=== PATIENT | female | born 1995 | race Caucasian/White ===

== ENCOUNTER → 2019-03-22 03:23 | Observation (INO) ==
[2019-03-22 01:35] LABS: Bilirubin,Urine Negative (Negative); Blood,Urine Negative (Negative); Clarity,Urine Cloudy (Clear); Color,Urine Yellow (Yellow); Glucose,Urine (UA) Normal (Normal); Ketones,Urine Negative (Negative); Leukocyte Esterase,Urine Negative (Negative); Nitrite,Urine Negative (Negative); Protein,Urine Negative (Neg-Trace); Specific Gravity,Urine 1.018 (1.010-1.025); Urobilinogen,Urine Normal (Normal)
[2019-03-22 01:37] LABS: Bacteria,Urine None Seen per hpf (None-Few); Hyaline Casts,Urine None Seen per lpf (None-Few); RBC,Urine 0-3 per hpf (0-3); Squamous Epithelial Cell,Urine Many per lpf (None-Few); WBC,Urine 0-3 per hpf (0-3)
== END | disposition home or self-care (01) ==
LOC: 1NENULAB
PROVIDERS: ADMIT Registered Nurse; ATTEND Registered Nurse

== ENCOUNTER 2019-04-18 09:51 | Inpatient (IN) ==
[2019-04-18] MEDS ORDERED: Famotidine 20 MG/2 ML VIAL IVP PRN (09:57)
[2019-04-18] MEDS ORDERED: Naloxone 0.4 MG/ML INJ IVP PRN (09:57)
[2019-04-18] MEDS ORDERED: Metoclopramide 10 MG/2 ML VIAL IVP PRN (09:57)
[2019-04-18] MEDS ORDERED: Lidocaine 1% 20 ML MDV INFILT PRN (09:57)
[2019-04-18 10:38] LABS: Basophils % 0.5 %; Eosinophils # 0.1 K/mcL (0.0-0.6); Eosinophils % 1.5 %; Hematocrit 32.7 % (35.3-44.9); Immature Granulocytes % 0.7 % (0-4); Lymphocytes # 1.7 K/mcL (0.6-4.6); Mean Corpuscular HGB Conc 33.6 g/dL (31.6-35.5); Mean Corpuscular Hemoglobin 27.9 pg (28.0-33.3); Mean Platelet Volume 10.8 fL (9.4-12.4); Monocytes # 0.6 K/mcL (0.0-1.3); Monocytes % 7.5 %; Neutrophils # 5.7 K/mcL (1.6-8.9); Platelet Count 236 K/mcL (140-400); Red Blood Count 3.94 M/mcL (3.82-4.97); Red Cell Distribution Width 12.9 % (11.5-14.5); Segmented Neutrophils % 68.8 %; White Blood Count 8.2 K/mcL (4.3-11.1)
[2019-04-18 10:47] LABS: Amphetamine Screen,Urine Negative ng/mL (Cutoff=1000); Barbiturate Screen,Urine Negative ng/mL (Cutoff=200); Benzodiazepines Screen,Urine Negative ng/mL (Cutoff=200); Cannabinoid Screen,Urine Negative ng/mL (Cutoff = 50); Cocaine Screen,Urine Negative ng/mL (Cutoff= 300); Opiate Screen,Urine Negative ng/mL (Cutoff=300); Phencyclidine Screen,Urine Negative ng/mL (Cutoff=25)
[2019-04-18] MEDS: miSOPROStoL 25 MCG TABLET PO SCH ×2 (11:23→15:44)
[2019-04-18] MEDS: Ondansetron 4 MG/2 ML VIAL IVP PRN (13:57)
[2019-04-18] MEDS: *HR* FentaNYL (PF) 100 MCG/2 ML VIAL IVP PRN ×2 (14:06→15:43)
[2019-04-18] MEDS ORDERED: Acyclovir 200 MG CAPSULE PO ONE (14:36)
[2019-04-18] MEDS: Ringers Solution, Lactated 1,000 ML IVC SCH ×2 (15:44→17:46)
[2019-04-18] MEDS ORDERED: EPHEDrine 50 MG/ML VIAL IVP PRN (17:37)
[2019-04-18] MEDS: Epidural Premix (fent/bupiv) 110 ML EP SCH (17:46)
[2019-04-18] MEDS ORDERED: Oxytocin 20 units/ LR 1000 mL 20 UNIT/1,000 ML BAG IVC ONE (19:36)
[2019-04-18] MEDS ORDERED: Oxytocin 20 units/ LR 1000 mL 20 UNIT/1,000 ML BAG IVC SCH (19:45)
[2019-04-19] MEDS: Acyclovir 200 MG CAPSULE PO SCH ×3 (00:48→20:15)
[2019-04-19] MEDS: Epidural Premix (fent/bupiv) 110 ML EP SCH (00:50)
[2019-04-19] MEDS ORDERED: 0.9 % Sodium Chloride 1,000 ML ONE (01:19)
[2019-04-19] MEDS: Ringers Solution, Lactated 1,000 ML IVC SCH (03:19)
[2019-04-19] MEDS: Ondansetron 4 MG/2 ML VIAL IVP PRN (04:13)
[2019-04-19] MEDS ORDERED: Ropivacaine/PF 0.2% 20 ML VIAL ONE (08:08)
[2019-04-19] MEDS ORDERED: OXYTOCIN IVC ONE (10:55)
[2019-04-19] MEDS ORDERED: Epidural Premix (fent/bupiv) 110 ML BAG EP ONE (10:55)
[2019-04-19] MEDS ORDERED: LR IVC ONE (10:55)
[2019-04-19] MEDS ORDERED: Ibuprofen 600 MG TABLET PO ONE (11:40)
[2019-04-19] MEDS ORDERED: Rho Immune Globulin 1,500 UNIT SYRINGE IM PRN (16:32)
[2019-04-19] MEDS ORDERED: Measles/Mumps/Rubella Vacc 0.5 ML VIAL SQ PRN (16:32)
[2019-04-19] MEDS: Ibuprofen 600 MG TABLET PO PRN (20:14)
[2019-04-19] MEDS ORDERED: Lanolin 7 G OINT...G. TP PRN (21:31)
[2019-04-20] MEDS: Ibuprofen 600 MG TABLET PO PRN ×2 (02:11→08:48)
[2019-04-20 08:48] VITALS: BP 133/76
[2019-04-20] MEDS: Acyclovir 200 MG CAPSULE PO SCH (08:48)
[2019-04-20] MEDS ORDERED: Prenatal Vit/FA 1 EACH TABLET PO SCH (09:00)
== END 2019-04-20 16:30 | disposition home or self-care (01) | DRG 807 ==
LOC: 1NENULAB 09:51 → 1NENUOBS 04-19 16:47
PROVIDERS: ADMIT Advanced Practice Midwife; ATTEND Advanced Practice Midwife